=== PATIENT | female | born 1955 | race Hispanic/Latino ===

== ENCOUNTER → 2021-09-21 | Outpatient (CLI) | payer BC | LOC: MAMMO 11:32 | PROVIDERS: ATTEND Family Medicine | DX: Z12.31 Encounter for screening mammogram for malignant neoplasm of breast (principal); M81.8 Other osteoporosis without current pathological fracture | CPT/HCPCS: 77067; 77080 ==

== ENCOUNTER 2023-08-24 23:59 | Inpatient (IN) | payer BC, MEDICARE ==
[~2023-08-24] VITALS: Ht 152.4 cm; Wt 64.0 kg
[2023-08-25] VITALS (7 sets, daily range): BP systolic 111–136; BP diastolic 60–67; PULSE 61–69; RESP 17–18; TEMP 97.4–98.1; O2SAT 98–100
[2023-08-25] MEDS: ONDANSETRON HCL INJ 2MG/ML 2ML 2 MG/ML VIAL IV STA ×2 (00:12→01:50)
[2023-08-25] MEDS: DICYCLOMINE HCL 20 MG/2 ML VIAL IM ONE (00:13)
[2023-08-25 00:16] LABS: BASOPHILS # (AUTO) 0.1 (0.0-0.1); BASOPHILS % 0.6 % (0.0-1.0); EOSINOPHILS # (AUTO) 0.1 (0.0-0.4); EOSINOPHILS % 0.8 % (0.0-6.0); HEMATOCRIT 36.8 % (34.2-44.1); HEMOGLOBIN 12.6 g/dL (12.0-16.0); LYMPHOCYTES # (AUTO) 4.4 (1.0-3.2); LYMPHOCYTES % 51.9 % (18.0-39.1); MEAN CORPUSCULAR HEMOGLOBIN 33.2 pg (28-32); MEAN CORPUSCULAR HGB CONC 34.2 g/dL (31-35); MEAN CORPUSCULAR VOLUME 96.8 fL (81-99); MONOCYTES # (AUTO) 0.7 (0.2-0.8); NEUTROPHILS # (AUTO) 3.3 (2.1-6.9); NEUTROPHILS % 38.5 % (38.7-80.0); PLATELET COUNT 270 x10e3/uL (140-360); RED CELL DISTRIBUTION WIDTH 12.7 % (11.7-14.4); WHITE BLOOD COUNT 8.49 x10e3/uL (4.8-10.8)
[2023-08-25 00:39] LABS: ALBUMIN 4.4 g/dL (3.5-5.0); ALBUMIN/GLOBULIN RATIO 1.3 (0.8-2.0); ANION GAP 16.8 mmol/L (8-16); BILIRUBIN,TOTAL 0.4 mg/dL (0.2-1.2); CALCIUM 9.6 mg/dL (8.4-10.2); CREATININE, SERUM 0.84 mg/dL (0.57-1.11); POTASSIUM 3.8 mmol/L (3.5-5.1); TOTAL PROTEIN 7.8 g/dL (6.5-8.1)
[2023-08-25 00:42] LABS: LIPASE 11 U/L (8-78)
[2023-08-25 00:48] LABS: TROPONIN I < 0.05 ng/mL (0.0-0.40)
[2023-08-25] MEDS: BELLADONNA ALK/PHENOBARBITAL 5 ML UDC PO ONE (01:34)
[2023-08-25] MEDS: LIDOCAINE VISC 2% SOLN 15 ML UDC PO ONE ×2 (01:34→01:42)
[2023-08-25] MEDS: MAGNESIUM/ALUMINUM/SIMETHICONE 30 ML UDC PO ONE (01:35)
[2023-08-25] MEDS ORDERED: ONDANSETRON ODT4 MG SL (03:26)
[2023-08-25] MEDS ORDERED: DICYCLOMINE HCL20 MG PO (03:26)
[2023-08-25] MEDS ORDERED: PANTOPRAZOLE SO40 MG PO (03:26)
[2023-08-25] MEDS ORDERED: IOPAMIDOL 370 MG/ML 100 ML INFUS..BTL INJ ONE (03:37)
[2023-08-25] MEDS: PROMETHAZINE 12.5MG/ NACL 0.9% 12.5 MG/50 ML BAG IV ONE (03:57)
[2023-08-25] MEDS: ONDANSETRON HCL INJ 2MG/ML 2ML 2 MG/ML VIAL IV PRN (05:27)
[2023-08-25] MEDS: SODIUM CHLORIDE 0.9% 1000ML 1,000 ML IV SCH (05:27)
[2023-08-25] MEDS: Morphine 4mg INJECTION 4 MG/ML INJ IV PRN (05:28)
[2023-08-25] MEDS: SUCRALFATE 1 GM TAB PO SCH (07:30)
[2023-08-25] MEDS: SUCRALFATE 1 GM/10 ML SUSP NG SCH (11:44)
[2023-08-25] MEDS: PANTOPRAZOLE SOD 40 MG TABEC PO SCH (13:49)
[2023-08-25] MEDS ORDERED: PIPERACILLIN/TAZOBACTAM 3.375 GM VIAL ONE ×2 (16:04→20:03)
[2023-08-25] MEDS ORDERED: SUCRALFATE 1 GM/10 ML SUSP ONE ×2 (16:04→21:03)
[2023-08-25] MEDS ORDERED: PROTONIX20 MG PO (18:33)
[2023-08-25] MEDS ORDERED: SUCRALFATE1 GM PO (18:33)
[2023-08-25] MEDS ORDERED: SUCRALFATE 1 GM TAB ONE (20:03)
[2023-08-25] MEDS ORDERED: SODIUM CHLORIDE 0.9% 1000ML 1,000 ML ONE (20:04)
[2023-08-25] MEDS: ACETAMINOPHEN 325 MG TAB PO PRN (20:54)
[2023-08-25] MEDS ORDERED: ACETAMINOPHEN 325 MG TAB ONE (20:55)
[2023-08-25] MEDS ORDERED: ONDANSETRON HCL INJ 2MG/ML 2ML 2 MG/ML VIAL ONE (20:55)
[2023-08-26] VITALS: BP 144/75; PULSE 82; RESP 18; TEMP 98.1; O2SAT 97
[2023-08-26 04:00] VITALS: BP 130/69; PULSE 78; RESP 18; TEMP 98.2; O2SAT 99
[2023-08-26] MEDS ORDERED: PIPERACILLIN/TAZOBACTAM 3.375 GM VIAL ONE ×2 (05:21→21:56)
[2023-08-26 06:06] LABS: BASOPHILS % 0.7 % (0.0-1.0); EOSINOPHILS # (AUTO) 0.1 (0.0-0.4); EOSINOPHILS % 0.9 % (0.0-6.0); HEMATOCRIT 33.7 % (34.2-44.1); HEMOGLOBIN 11.5 g/dL (12.0-16.0); LYMPHOCYTES % 35.2 % (18.0-39.1); MEAN CORPUSCULAR HEMOGLOBIN 33.2 pg (28-32); MEAN CORPUSCULAR HGB CONC 34.1 g/dL (31-35); MEAN CORPUSCULAR VOLUME 97.4 fL (81-99); MONOCYTES # (AUTO) 0.5 (0.2-0.8); MONOCYTES % 8.3 % (4.4-11.3); NEUTROPHILS # (AUTO) 3.1 (2.1-6.9); NEUTROPHILS % 54.7 % (38.7-80.0); PLATELET COUNT 253 x10e3/uL (140-360); RED BLOOD COUNT 3.46 x10e6/uL (3.6-5.1); RED CELL DISTRIBUTION WIDTH 12.8 % (11.7-14.4); WHITE BLOOD COUNT 5.66 x10e3/uL (4.8-10.8)
[2023-08-26 06:20] LABS: ALANINE AMINOTRANSFERASE 423 IU/L (0-55); ALBUMIN 3.5 g/dL (3.5-5.0); ALBUMIN/GLOBULIN RATIO 1.2 (0.8-2.0); ALKALINE PHOSPHATASE 138 IU/L (40-150); BILIRUBIN,TOTAL 2.4 mg/dL (0.2-1.2); BLOOD UREA NITROGEN 6 mg/dL (7-26); BUN/CREATININE RATIO 7 (6-25); CALCIUM 8.6 mg/dL (8.4-10.2); CARBON DIOXIDE 21 mmol/L (22-29); CHLORIDE 110 mmol/L (98-107); CREATININE, SERUM 0.82 mg/dL (0.57-1.11); EST GLOMERULAR FILTRATION RATE 78 ML/MIN (>=60); GLUCOSE 95 mg/dL (74-118); SODIUM 142 mmol/L (136-145); TOTAL PROTEIN 6.4 g/dL (6.5-8.1)
[2023-08-26 06:43] LABS: LIPASE < 4 U/L (8-78)
[2023-08-26 07:00] VITALS: BP 133/69; PULSE 73; RESP 18; TEMP 97.9; O2SAT 98
[2023-08-26] MEDS ORDERED: SUCRALFATE 1 GM/10 ML SUSP ONE ×2 (07:45→21:55)
[2023-08-26] MEDS ORDERED: PANTOPRAZOLE SOD 40 MG TABEC ONE (07:45)
[2023-08-26 08:07] VITALS: BP 133/69; PULSE 73; RESP 18; TEMP 97.9; O2SAT 98
[2023-08-26 16:32] VITALS: BP 135/74; PULSE 86; RESP 20; TEMP 98.1; O2SAT 98
[2023-08-26 20:00] VITALS: BP 137/67; PULSE 72; RESP 18; RESP 20; TEMP 98; O2SAT 100
[2023-08-27] VITALS (7 sets, daily range): BP systolic 118–147; BP diastolic 67–83; PULSE 76–86; RESP 18–20; TEMP 96.9–98.3; O2SAT 98–100
[2023-08-27 06:26] LABS: ALBUMIN 3.5 g/dL (3.5-5.0); BILIRUBIN,DIRECT 0.5 mg/dL (0.0-0.5); BILIRUBIN,TOTAL 1.1 mg/dL (0.2-1.2); TOTAL PROTEIN 6.3 g/dL (6.5-8.1)
[2023-08-27] MEDS ORDERED: PIPERACILLIN/TAZOBACTAM 3.375 GM VIAL ONE ×2 (07:11→11:17)
[2023-08-27] MEDS ORDERED: SODIUM CHLORIDE 0.9% 1000ML 1,000 ML ONE (08:36)
[2023-08-27] MEDS ORDERED: SUCRALFATE 1 GM/10 ML SUSP ONE ×2 (08:36→11:17)
[2023-08-27] MEDS ORDERED: PANTOPRAZOLE SOD 40 MG TABEC ONE (08:36)
[2023-08-27] MEDS: MELATONIN 3 MG TAB PO SCH (21:53)
[2023-08-28 08:00] VITALS: BP_SYST 147; BP_DIAS 83; BP_DIAS 90; PULSE 80; PULSE 86; RESP 18; RESP 20; TEMP 96.9; TEMP 97.7; O2SAT 100; O2SAT 99
[2023-08-28] MEDS ORDERED: SUCRALFATE 1 GM TAB ONE (11:51)
[2023-08-28] MEDS ORDERED: PANTOPRAZOLE SOD 40 MG TABEC ONE (11:51)
[2023-08-28] MEDS ORDERED: Sodium Chloride 0.9% 50ML Bag ONE (11:51)
[2023-08-28] MEDS ORDERED: PIPERACILLIN/TAZOBACTAM 3.375 GM VIAL ONE (11:51)
[2023-08-28 12:04] LABS: ALBUMIN 4.3 g/dL (3.5-5.0); BILIRUBIN,DIRECT 0.3 mg/dL (0.0-0.5); BILIRUBIN,TOTAL 0.9 mg/dL (0.2-1.2); TOTAL PROTEIN 7.9 g/dL (6.5-8.1)
[2023-08-28] MEDS ORDERED: ONDANSETRON HCL 4 MG ORAL DISINTEGRATING TAB PO PRN (13:00)
[2023-08-28 16:00] VITALS: BP 132/80; PULSE 74; RESP 18; TEMP 98.1; O2SAT 100
[2023-08-28] MEDS: SUCRALFATE 1 GM/10 ML SUSP NG SCH (16:29)
== END 2023-08-28 17:47 | disposition home or self-care (01) | DRG 392 ==
LOC: ER 08-25 00:05 → ERHOLD 08-25 05:14 → MED/SURG 08-25 06:32
PROVIDERS: ADMIT Internal Medicine; ATTEND Internal Medicine
DX: K29.00 Acute gastritis without bleeding (principal); K50.90 Crohn's disease, unspecified, without complications; Z11.52 Encounter for screening for COVID-19; R79.89 Other specified abnormal findings of blood chemistry
CPT/HCPCS: 36415; 71045; 74177; 74181; 76705; 80053; 80076; 83690; 84484; 85025; 93005; 99284; J2405; J2543; J7030; Q9967; U0002